=== PATIENT | female | born 1960 | race Caucasian/White ===

== ENCOUNTER 2016-07-17 22:27 | Emergency (ER) | payer OTHER ==
[~2016-07-17] VITALS: Ht 165.1 cm; Wt 79.0 kg
[~2016-07-17 22:27] MED LIST: ATOR10TA69 PO; ESTR1TAB17 PO; LOSA25TA2 PO; MEDR2.5T6 PO; MULT-1259 PO; NITR0.4T SL; NITR1PAT68 TD; SITA1TAB6 PO
[2016-07-17] MEDS ORDERED: SITA25 PO (22:33)
[2016-07-17 22:41] LABS: GLUCOSE,POINT OF CARE 332 MG/DL (70-110)
[2016-07-17 22:49] LABS: BASOPHILS % (AUTO) 0.2 % (0.0-2.0); EOSINOPHILS % (AUTO) 0.5 % (1.0-6.0); HEMATOCRIT 40.9 % (36-46); HEMOGLOBIN 13.4 g/dL (12.0-16.0); LYMPHOCYTES # (AUTO) 0.6 K/uL (1.0-4.8); MEAN CORPUSCULAR HEMOGLOBIN 28.8 pg (26.0-34.0); MEAN CORPUSCULAR HGB CONC 32.8 G/dL (31.0-37.0); MEAN CORPUSCULAR VOLUME 88 fL (80-100); MONOCYTES # (AUTO) 0.3 K/uL (0.1-1.0); NEUTROPHILS # (AUTO) 5.9 K/uL (1.8-7.7); PLATELET COUNT (AUTO) 291 K/uL (150-450); RED BLOOD CELL COUNT(AUTO) 4.66 MIL/uL (4.00-5.20); RED CELL DISTRIBUTION WIDTH 12.5 % (11.5-14.5); WHITE BLOOD COUNT (AUTO) 6.9 K/uL (4.5-11.0)
[2016-07-17 22:51] LABS: NEUTROPHILS % (AUTO) 85.3 % (40.0-70.0)
[2016-07-17 23:00] LABS: ANION GAP 7 mmol/L (8-16); CALCIUM, TOTAL 8.5 mg/dL (8.8-10.5); CARBON DIOXIDE 31 mmol/L (22-29); CHLORIDE 100 mmol/L (98-107); CREATININE 0.75 mg/dL (0.60-1.30); GLOMERULAR FILTR. RATE CALC > 60 mL/min (>60); SODIUM SERUM 138 mmol/L (136-145); UREA NITROGEN, BLOOD 17 mg/dL (7-18)
[2016-07-17 23:07] LABS: ALANINE AMINOTRANSFERASE 30 U/L (12-78); ALBUMIN 3.3 g/dL (3.4-5.0); ASPARTATE AMINOTRANSFERASE 20 U/L (15-37); BILIRUBIN,TOTAL 0.8 mg/dL (0.1-1.0); TOTAL PROTEIN, SERUM 7.1 g/dL (6.4-8.2)
[2016-07-18 00:53] LABS: APPEARANCE,URINE CLOUDY (CLEAR); GLUCOSE, URINE (UA) >=1000 mg/dL (NEGATIVE); KETONES,URINE TRACE mg/dL (NEGATIVE); LEUKOCYTE ESTERASE ,URINE NEGATIVE (NEGATIVE); OCCULT BLOOD,URINE NEGATIVE (NEGATIVE); PH,URINE 5.5 (5.0-8.0); PROTEIN,URINE POS 1+ (NEGATIVE)
[2016-07-18 01:09] LABS: ADD UA MICROSCOPIC YES
[2016-07-18] MEDS ORDERED: SODIUM CHLORIDE 0.9% 1,000 ML IV ONE (01:15)
[2016-07-18] MEDS ORDERED: DIPHENOXYLATE/ATROP 2.5-0.025 MG TABLET PO ONE (01:15)
[2016-07-18] MEDS ORDERED: ONDANSETRON HCL 4 MG/2 ML VIAL IVP ONE (01:15)
[2016-07-18] MEDS ORDERED: KETOROLAC TROMETHAMINE 30 MG/ML VIAL IVP ONE (01:30)
[2016-07-18 01:35] LABS: RBC,URINE 0-2 /HPF (0-2); SQUAMOUS EPITHELIAL CELL,UR Few /LPF (None Seen)
[2016-07-18] MEDS ORDERED: ACETAMINOPHEN 500 MG TABLET PO ONE (01:45)
[2016-07-18 02:25] VITALS: BP 112/71
== END 2016-07-18 02:27 | disposition home or self-care (01) ==
LOC: EMS 22:28
DX: K52.9 Noninfective gastroenteritis and colitis, unspecified (principal); E11.65 Type 2 diabetes mellitus with hyperglycemia; R51 Headache; E78.00 Pure hypercholesterolemia, unspecified
CPT/HCPCS: 36415; 80053; 81001; 82962; 83690; 85025; 87086; 96361; 96374; 96375; 99284; J1885; J2405; J7030

== ENCOUNTER 2016-10-25 14:13 | Emergency (ER) | payer OTHER ==
[~2016-10-25] VITALS: Ht 165.1 cm; Wt 81.8 kg
[~2016-10-25 14:13] MED LIST changes: -SITA1TAB6 PO; +SITA25 PO
[2016-10-25 14:27] LABS: GLUCOSE,POINT OF CARE 355 MG/DL (70-110)
[2016-10-25] MEDS ORDERED: HYDROCODONE/ACETAMINOPHEN 5-325 MG TABLET PO ONE (17:00)
[2016-10-25 17:24] LABS: BASOPHILS % (AUTO) 0.3 % (0.0-2.0); EOSINOPHILS % (AUTO) 1.4 % (1.0-6.0); HEMOGLOBIN 13.7 g/dL (12.0-16.0); LYMPHOCYTES # (AUTO) 2.5 K/uL (1.0-4.8); LYMPHOCYTES % (AUTO) 29.8 % (22.0-44.0); MEAN CORPUSCULAR HEMOGLOBIN 29.5 pg (26.0-34.0); MEAN CORPUSCULAR HGB CONC 34.3 G/dL (31.0-37.0); MEAN CORPUSCULAR VOLUME 86 fL (80-100); MONOCYTES # (AUTO) 0.5 K/uL (0.1-1.0); NEUTROPHILS # (AUTO) 5.3 K/uL (1.8-7.7); NEUTROPHILS % (AUTO) 62.5 % (40.0-70.0); PLATELET COUNT (AUTO) 215 K/uL (150-450); RED BLOOD CELL COUNT(AUTO) 4.64 MIL/uL (4.00-5.20); RED CELL DISTRIBUTION WIDTH 13.2 % (11.5-14.5); WHITE BLOOD COUNT (AUTO) 8.4 K/uL (4.5-11.0)
[2016-10-25 17:29] LABS: ANION GAP 7 mmol/L (8-16); CALCIUM, TOTAL 9.2 mg/dL (8.8-10.5); CARBON DIOXIDE 28 mmol/L (22-29); CHLORIDE 102 mmol/L (98-107); CREATININE 0.73 mg/dL (0.60-1.30); GLOMERULAR FILTR. RATE CALC > 60 mL/min (>60); POTASSIUM 4.3 mmol/L (3.5-5.1); SODIUM SERUM 137 mmol/L (136-145); UREA NITROGEN, BLOOD 12 mg/dL (7-18)
[2016-10-25] MEDS ORDERED: BACITRACIN 0.9 GM PACKET OINTMENT TP ONE (18:30)
[2016-10-25] MEDS ORDERED: PERTUSS(ACELL),DIPH,TET VAC/PF 0.5 ML VIAL IM ONE (18:30)
[2016-10-25 19:56] LABS: GLUCOSE,POINT OF CARE 270 MG/DL (70-110)
[2016-10-25 20:19] VITALS: BP 154/81
== END 2016-10-25 20:23 | disposition home or self-care (01) ==
LOC: EMS 14:15
DX: R55 Syncope and collapse (principal); S00.83XA Contusion of other part of head, initial encounter; S40.012A Contusion of left shoulder, initial encounter; S50.02XA Contusion of left elbow, initial encounter; S80.212A Abrasion, left knee, initial encounter; E11.65 Type 2 diabetes mellitus with hyperglycemia; I11.9 Hypertensive heart disease without heart failure; E78.00 Pure hypercholesterolemia, unspecified; W19.XXXA Unspecified fall, initial encounter; Y93.89 Activity, other specified; Y92.89 Other specified places as the place of occurrence of the external cause; Y99.8 Other external cause status
CPT/HCPCS: 29240; 82962; 90471; 90715; 93005; 99285

== ENCOUNTER 2017-11-18 00:31 | Inpatient (IN) | payer MEDICAID, OTHER ==
[~2017-11-18] VITALS: Ht 157.5 cm; Wt 86.8 kg
[~2017-11-18 00:31] MED LIST changes: -MULT-1259 PO
[2017-11-18] MEDS ORDERED: LOSA50TA37 PO (00:54)
[2017-11-18] MEDS ORDERED: INSU100V SQ (00:54)
[2017-11-18] MEDS ORDERED: ASPI81 PO (00:54)
[2017-11-18] MEDS ORDERED: INSLAN SQ (00:54)
[2017-11-18] MEDS ORDERED: DULO20CA30 PO (00:54)
[2017-11-18 01:04] LABS: GLUCOSE,POINT OF CARE 222 MG/DL (70-110)
[2017-11-18 01:07] LABS: BASOPHILS % (AUTO) 0.5 % (0.0-2.0); HEMATOCRIT 42.8 % (36-46); HEMOGLOBIN 14.8 g/dL (12.0-16.0); LYMPHOCYTES # (AUTO) 3.3 K/uL (1.0-4.8); LYMPHOCYTES % (AUTO) 37.6 % (22.0-44.0); MEAN CORPUSCULAR HEMOGLOBIN 29.6 pg (26.0-34.0); MEAN CORPUSCULAR HGB CONC 34.5 G/dL (31.0-37.0); MEAN CORPUSCULAR VOLUME 86 fL (80-100); MONOCYTES # (AUTO) 0.7 K/uL (0.1-1.0); MONOCYTES % (AUTO) 7.9 % (2.0-9.0); NEUTROPHILS # (AUTO) 4.6 K/uL (1.8-7.7); PLATELET COUNT (AUTO) 237 K/uL (150-450); RED CELL DISTRIBUTION WIDTH 12.9 % (11.5-14.5)
[2017-11-18 01:18] LABS: ANION GAP 12 mmol/L (8-16); CARBON DIOXIDE 28 mmol/L (22-29); CHLORIDE 97 mmol/L (98-107); CREATININE 0.89 mg/dL (0.60-1.30); GLOMERULAR FILTR. RATE CALC > 60 mL/min (>60); GLUCOSE,RANDOM 230 mg/dL (70-110); POTASSIUM 3.1 mmol/L (3.5-5.1); PROTHROMBIN TIME 10.4 SEC (9.4-11.6); SODIUM SERUM 137 mmol/L (136-145); UREA NITROGEN, BLOOD 16 mg/dL (7-18)
[2017-11-18 01:26] LABS: B-TYPE NATRIURETIC PEPTIDE < 5 pg/mL (0-100)
[2017-11-18 01:36] LABS: APPEARANCE,URINE CLEAR (CLEAR); BILIRUBIN,URINE NEGATIVE (NEGATIVE); GLUCOSE, URINE (UA) >=1000 mg/dL (NEGATIVE); KETONES,URINE NEGATIVE (NEGATIVE); LEUKOCYTE ESTERASE ,URINE NEGATIVE (NEGATIVE); NITRATE,URINE POSITIVE (NEGATIVE); OCCULT BLOOD,URINE NEGATIVE (NEGATIVE); PROTEIN,URINE TRACE (NEGATIVE); UROBILINOGEN,URINE 0.2 mg/dL (<=1.0)
[2017-11-18 01:42] LABS: ALANINE AMINOTRANSFERASE 33 U/L (12-78); ALBUMIN 3.8 g/dL (3.4-5.0); ALKALINE PHOSPHATASE 141 U/L (46-116); ASPARTATE AMINOTRANSFERASE 16 U/L (15-37); BILIRUBIN,TOTAL 0.5 mg/dL (0.1-1.0); CREATINE KINASE, TOTAL 189 U/L (26-192); TOTAL PROTEIN, SERUM 8.2 g/dL (6.4-8.2)
[2017-11-18 01:43] LABS: BACTERIA,URINE Moderate /HPF (None Seen); RBC,URINE None Seen /HPF (0-2); SQUAMOUS EPITHELIAL CELL,UR Rare /LPF (None Seen); YEAST,URINE Rare /HPF (None Seen)
[2017-11-18 01:44] LABS: HYALINE CASTS, URINE 0-2 /LPF (None Seen)
[2017-11-18] MEDS ORDERED: ASPIRIN 325 MG TABLET PO ONE (02:00)
[2017-11-18] MEDS ORDERED: NITROGLYCERIN 2% (1 GM=INCH) PACKET TP ONE (02:00)
[2017-11-18] MEDS ORDERED: NITROGLYCERIN 0.4 MG SUBLINGUAL TABLET #25 SL ONE (02:00)
[2017-11-18] MEDS ORDERED: ONDANSETRON HCL 4 MG/2 ML VIAL IVP PRN (02:30)
[2017-11-18] MEDS ORDERED: 0.9% SODIUM CHLORIDE 10 ML SYRINGE IVP PRN (02:30)
[2017-11-18] MEDS ORDERED: ACETAMINOPHEN 325 MG TABLET PO PRN (02:30)
[2017-11-18] MEDS ORDERED: POTASSIUM CHLORIDE 10% 40 MEQ/30 ML LIQUID UDCUP PO ONE (03:00)
[2017-11-18 04:41] VITALS: BP 158/88
[2017-11-18] MEDS ORDERED: ZOLPIDEM TARTRATE 5 MG TABLET PO PRN (07:00)
[2017-11-18] MEDS ORDERED: DEXTROSE 50%-WATER 25 GM/50 ML SYRINGE IVP PRN (07:00)
[2017-11-18] MEDS ORDERED: BISACODYL 10 MG RECTAL RECTAL SUPPOSITORY PR PRN (07:00)
[2017-11-18] MEDS ORDERED: MAGNESIUM HYDROXIDE SUSPENSION 30 ML UDCUP PO PRN (07:00)
[2017-11-18] MEDS: ACETAMINOPHEN 325 MG TABLET PO PRN (07:31)
[2017-11-18 08:34] VITALS: BP 116/55
[2017-11-18] MEDS: DOCUSATE SODIUM 100 MG CAPSULE PO SCH ×2 (08:56→20:31)
[2017-11-18] MEDS: PANTOPRAZOLE SODIUM 40 MG DR TABLET PO SCH (08:58)
[2017-11-18] MEDS: ATORVASTATIN CALCIUM 10 MG TABLET PO SCH (08:58)
[2017-11-18] MEDS: LOSARTAN POTASSIUM 50 MG TABLET PO SCH (08:59)
[2017-11-18] MEDS: HEPARIN SODIUM,PORCINE 5,000 UNITS/ML VIAL SQ SCH ×2 (09:00→16:37)
[2017-11-18] MEDS: ASPIRIN 81 MG CHEWABLE TABLET PO SCH (09:00)
[2017-11-18] MEDS: NITROGLYCERIN 2% (1 GM=INCH) PACKET TP SCH ×2 (09:04→16:38)
[2017-11-18] MEDS: INSULIN GLARGINE,HUM.REC.ANLOG 100 UNITS/ML SQ SCH ×2 (09:12→20:37)
[2017-11-18] MEDS: DULoxetine HCL 20 MG CAPSULE PO SCH (09:13)
[2017-11-18] MEDS: HYDROCODONE/ACETAMINOPHEN 5-325 MG TABLET PO PRN (10:08)
[2017-11-18 10:53] VITALS: BP 123/69
[2017-11-18] MEDS: INSULIN LISPRO 100 UNITS/ML SQ PRN ×3 (12:02→20:38)
[2017-11-18 12:35] LABS: GLUCOMETER DEV NAME(LOC) 5S 1M; GLUCOSE,POINT OF CARE 220 MG/DL (70-110)
[2017-11-18] MEDS: ONDANSETRON HCL 4 MG/2 ML VIAL IVP PRN (14:39)
[2017-11-18 15:04] VITALS: BP 115/65
[2017-11-18 18:34] LABS: GLUCOMETER DEV NAME(LOC) 5S 2Q; GLUCOSE,POINT OF CARE 184 MG/DL (70-110)
[2017-11-18 18:35] LABS: GLUCOMETER DEV NAME(LOC) 5S 2Q; GLUCOSE,POINT OF CARE 256 MG/DL (70-110)
[2017-11-18 19:59] VITALS: BP 115/63
[2017-11-18 23:34] VITALS: BP 111/64
[2017-11-19] VITALS (7 sets, daily range): BP systolic 105–141; BP diastolic 59–72
[2017-11-19] MEDS: HEPARIN SODIUM,PORCINE 5,000 UNITS/ML VIAL SQ SCH ×3 (00:06→15:38)
[2017-11-19] MEDS: NITROGLYCERIN 2% (1 GM=INCH) PACKET TP SCH ×3 (00:06→15:38)
[2017-11-19 01:29] LABS: GLUCOMETER DEV NAME(LOC) 5S 2Q; GLUCOSE,POINT OF CARE 305 MG/DL (70-110)
[2017-11-19 06:24] LABS: BASOPHILS % (AUTO) 0.3 % (0.0-2.0); EOSINOPHILS % (AUTO) 2.6 % (1.0-6.0); HEMATOCRIT 38.4 % (36-46); HEMOGLOBIN 13.1 g/dL (12.0-16.0); LYMPHOCYTES # (AUTO) 2.3 K/uL (1.0-4.8); LYMPHOCYTES % (AUTO) 34.4 % (22.0-44.0); MEAN CORPUSCULAR HEMOGLOBIN 29.1 pg (26.0-34.0); MEAN CORPUSCULAR HGB CONC 34.1 G/dL (31.0-37.0); MEAN CORPUSCULAR VOLUME 85 fL (80-100); MONOCYTES # (AUTO) 0.4 K/uL (0.1-1.0); MONOCYTES % (AUTO) 6.5 % (2.0-9.0); NEUTROPHILS # (AUTO) 3.8 K/uL (1.8-7.7); NEUTROPHILS % (AUTO) 56.2 % (40.0-70.0); PLATELET COUNT (AUTO) 215 K/uL (150-450); RED CELL DISTRIBUTION WIDTH 13.1 % (11.5-14.5)
[2017-11-19 06:45] LABS: ANION GAP 7 mmol/L (8-16); CALCIUM, TOTAL 8.8 mg/dL (8.8-10.5); CARBON DIOXIDE 28 mmol/L (22-29); CHLORIDE 99 mmol/L (98-107); CHOL/HDL RATIO 4.3 (3.9-5.7); CHOLESTEROL 210 mg/dL (131-200); CREATININE 0.84 mg/dL (0.60-1.30); GLOMERULAR FILTR. RATE CALC > 60 mL/min (>60); GLUCOSE,RANDOM 364 mg/dL (70-110); HDL CHOLESTEROL 49 mg/dL (40-60); LDL CHOL (CALC.) 120 mg/dL (0-130); POTASSIUM 4.3 mmol/L (3.5-5.1); SODIUM SERUM 134 mmol/L (136-145); TRIGLYCERIDES 206 mg/dL (15-150); UREA NITROGEN, BLOOD 12 mg/dL (7-18)
[2017-11-19] MEDS: PANTOPRAZOLE SODIUM 40 MG DR TABLET PO SCH (09:12)
[2017-11-19] MEDS ORDERED: REGADENOSON 0.4 MG/5 ML PF SYRINGE IVP ONE ×2 (09:12→17:48)
[2017-11-19] MEDS: DOCUSATE SODIUM 100 MG CAPSULE PO SCH ×2 (09:13→20:40)
[2017-11-19] MEDS: ATORVASTATIN CALCIUM 10 MG TABLET PO SCH (09:14)
[2017-11-19] MEDS: ASPIRIN 81 MG CHEWABLE TABLET PO SCH (09:14)
[2017-11-19] MEDS: INSULIN GLARGINE,HUM.REC.ANLOG 100 UNITS/ML SQ SCH ×2 (09:27→21:06)
[2017-11-19] MEDS: DULoxetine HCL 20 MG CAPSULE PO SCH (09:28)
[2017-11-19] MEDS ORDERED: SESTAMIBI TC99M/UD ISOTOPE 1 EA INJ INJ ONE ×2 (10:30→13:25)
[2017-11-19] MEDS: INSULIN LISPRO 100 UNITS/ML SQ PRN ×3 (12:37→21:07)
[2017-11-19] MEDS: LOSARTAN POTASSIUM 50 MG TABLET PO SCH (15:38)
[2017-11-19] MEDS ORDERED: INSULIN LISPRO 100 UNITS/ML SQ ONE (15:45)
[2017-11-19 20:15] LABS: GLUCOMETER DEV NAME(LOC) 5S 2Q; GLUCOSE,POINT OF CARE 352 MG/DL (70-110)
[2017-11-19 20:15] LABS: GLUCOMETER DEV NAME(LOC) 5S 2Q; GLUCOSE,POINT OF CARE 341 MG/DL (70-110)
[2017-11-19 20:15] LABS: GLUCOMETER DEV NAME(LOC) 5S 2Q; GLUCOSE,POINT OF CARE 320 MG/DL (70-110)
[2017-11-19] MEDS: ACETAMINOPHEN 325 MG TABLET PO PRN (20:45)
[2017-11-20] VITALS (16 sets, daily range): BP systolic 103–179; BP diastolic 54–97
[2017-11-20] MEDS: HEPARIN SODIUM,PORCINE 5,000 UNITS/ML VIAL SQ SCH ×3 (00:18→17:04)
[2017-11-20 00:24] LABS: GLUCOMETER DEV NAME(LOC) 5S 1M; GLUCOSE,POINT OF CARE 245 MG/DL (70-110)
[2017-11-20 00:24] LABS: GLUCOMETER DEV NAME(LOC) 5S 1M; GLUCOSE,POINT OF CARE 416 MG/DL (70-110)
[2017-11-20 00:24] LABS: GLUCOMETER DEV NAME(LOC) 5S 1M; GLUCOSE,POINT OF CARE 316 MG/DL (70-110)
[2017-11-20] MEDS: ACETAMINOPHEN 325 MG TABLET PO PRN ×2 (06:08→18:25)
[2017-11-20 06:17] LABS: BASOPHILS % (AUTO) 1.2 % (0.0-2.0); HEMATOCRIT 37.9 % (36-46); LYMPHOCYTES # (AUTO) 2.2 K/uL (1.0-4.8); LYMPHOCYTES % (AUTO) 38.1 % (22.0-44.0); MEAN CORPUSCULAR HEMOGLOBIN 29.2 pg (26.0-34.0); MEAN CORPUSCULAR HGB CONC 34.4 G/dL (31.0-37.0); MEAN CORPUSCULAR VOLUME 85 fL (80-100); MONOCYTES # (AUTO) 0.3 K/uL (0.1-1.0); MONOCYTES % (AUTO) 5.7 % (2.0-9.0); PLATELET COUNT (AUTO) 204 K/uL (150-450); RED BLOOD CELL COUNT(AUTO) 4.47 MIL/uL (4.00-5.20); RED CELL DISTRIBUTION WIDTH 13.2 % (11.5-14.5)
[2017-11-20 06:29] LABS: ANION GAP 4 mmol/L (8-16); CALCIUM, TOTAL 8.5 mg/dL (8.8-10.5); CARBON DIOXIDE 30 mmol/L (22-29); CHLORIDE 102 mmol/L (98-107); CREATININE 0.72 mg/dL (0.60-1.30); GLOMERULAR FILTR. RATE CALC > 60 mL/min (>60); GLUCOSE,RANDOM 265 mg/dL (70-110); POTASSIUM 4.2 mmol/L (3.5-5.1); SODIUM SERUM 136 mmol/L (136-145); UREA NITROGEN, BLOOD 11 mg/dL (7-18)
[2017-11-20] MEDS: NITROGLYCERIN 2% (1 GM=INCH) PACKET TP SCH ×2 (08:00)
[2017-11-20] MEDS: INSULIN GLARGINE,HUM.REC.ANLOG 100 UNITS/ML SQ SCH ×2 (09:00→20:23)
[2017-11-20] MEDS: ASPIRIN 81 MG CHEWABLE TABLET PO SCH (09:00)
[2017-11-20] MEDS: DOCUSATE SODIUM 100 MG CAPSULE PO SCH ×2 (09:00→20:20)
[2017-11-20] MEDS: PANTOPRAZOLE SODIUM 40 MG DR TABLET PO SCH (09:01)
[2017-11-20] MEDS: ATORVASTATIN CALCIUM 10 MG TABLET PO SCH (09:01)
[2017-11-20] MEDS: DULoxetine HCL 20 MG CAPSULE PO SCH (09:01)
[2017-11-20] MEDS: LOSARTAN POTASSIUM 50 MG TABLET PO SCH (09:01)
[2017-11-20 11:39] LABS: GLUCOMETER DEV NAME(LOC) 5S 1M; GLUCOSE,POINT OF CARE 270 MG/DL (70-110)
[2017-11-20] MEDS: INSULIN LISPRO 100 UNITS/ML SQ PRN ×2 (12:11→20:23)
[2017-11-20] MEDS: CefTRIAXone SODIUM 1 GM in DEXTROSE 5%-WATER 10 ML IV SCH (12:46)
[2017-11-20] MEDS ORDERED: SODIUM BICARBONATE 50 MEQ/50 ML VIAL ONE (13:39)
[2017-11-20] MEDS ORDERED: IOHEXOL 300 MG/ML 150 ML VIAL ONE (13:39)
[2017-11-20] MEDS ORDERED: HEPARIN SODIUM 1000 UNITS/NS 1,000 ML ONE (13:39)
[2017-11-20] MEDS ORDERED: LIDOCAINE HCL/PF 1% 30 ML VIAL ONE (13:39)
[2017-11-20] MEDS ORDERED: HEPARIN SODIUM 2,000 UNITS in HEPARIN SODIUM 1000 UNITS/NS 1,000 ML IARTER ONE (14:04)
[2017-11-20] MEDS ORDERED: LIDOCAINE 1% 30 ML/SOD BICARB 8.4% 4 ML SQ ONE (14:15)
[2017-11-20] MEDS ORDERED: IOHEXOL 300 MG/ML 150 ML VIAL IARTER ONE (14:15)
[2017-11-20] MEDS ORDERED: NITROGLYCERIN 50 MG/D5% WATER 250 ML ONE (14:16)
[2017-11-20] MEDS ORDERED: IOHEXOL 300 MG/ML 50 ML VIAL ONE (14:16)
[2017-11-20] MEDS ORDERED: IOHEXOL 300 MG/ML 100 ML VIAL ONE (14:16)
[2017-11-20] MEDS ORDERED: VERAPAMIL HCL 2.5 MG/ML 2 ML VIAL ONE (14:16)
[2017-11-20] MEDS ORDERED: TICAGRELOR 90 MG TABLET ONE (14:17)
[2017-11-20] MEDS ORDERED: TICAGRELOR 90 MG TABLET PO ONE (14:30)
[2017-11-20] MEDS ORDERED: NITROGLYCERIN/D5W 50 MG/250 ML IV BOTTLE ICOR ONE (14:45)
[2017-11-20] MEDS ORDERED: HEPARIN SODIUM,PORCINE 5,000 UNITS/ML VIAL IVP ONE (14:45)
[2017-11-20] MEDS ORDERED: VERAPAMIL HCL 2.5 MG/ML 2 ML VIAL ICOR ONE (14:45)
[2017-11-20] MEDS ORDERED: IOHEXOL 300 MG/ML 100 ML VIAL IARTER ONE (14:45)
[2017-11-20] MEDS ORDERED: NITROGLYCERIN 400 MCG/SUBLINGUAL SPRAY 4.9 GM BOTTLE SL PRN (15:30)
[2017-11-20] MEDS ORDERED: METOPROLOL SUCCINATE 25 MG ER TABLET PO ONE (16:00)
[2017-11-20] MEDS: ISOSORBIDE MONONITRATE 30 MG ER TABLET PO SCH (17:04)
[2017-11-20 19:59] LABS: GLUCOSE,POINT OF CARE 262 MG/DL (70-110)
[2017-11-20] MEDS: ATORVASTATIN CALCIUM 40 MG TABLET PO SCH (20:20)
[2017-11-20] MEDS: TICAGRELOR 90 MG TABLET PO SCH (20:20)
[2017-11-21] VITALS (11 sets, daily range): BP systolic 100–140; BP diastolic 52–76
[2017-11-21] MEDS: HYDROCODONE/ACETAMINOPHEN 5-325 MG TABLET PO PRN
[2017-11-21 00:03] LABS: GLUCOSE,POINT OF CARE 311 MG/DL (70-110)
[2017-11-21 03:11] LABS: GLUCOMETER DEV NAME(LOC) 5S 2Q; GLUCOSE,POINT OF CARE 299 MG/DL (70-110)
[2017-11-21] MEDS: MORPHINE SULFATE 2 MG/ML SYRINGE IVP PRN ×2 (03:33→08:31)
[2017-11-21 05:16] LABS: ANION GAP 5 mmol/L (8-16); CALCIUM, TOTAL 8.4 mg/dL (8.8-10.5); CARBON DIOXIDE 28 mmol/L (22-29); CHLORIDE 101 mmol/L (98-107); CREATININE 0.63 mg/dL (0.60-1.30); GLOMERULAR FILTR. RATE CALC > 60 mL/min (>60); GLUCOSE,RANDOM 287 mg/dL (70-110); SODIUM SERUM 134 mmol/L (136-145); UREA NITROGEN, BLOOD 12 mg/dL (7-18)
[2017-11-21] MEDS: INSULIN LISPRO 100 UNITS/ML SQ PRN ×4 (05:46→21:03)
[2017-11-21 06:01] LABS: BASOPHILS % (AUTO) 0.2 % (0.0-2.0); EOSINOPHILS % (AUTO) 1.6 % (1.0-6.0); HEMATOCRIT 36.6 % (36-46); HEMOGLOBIN 12.5 g/dL (12.0-16.0); LYMPHOCYTES # (AUTO) 1.3 K/uL (1.0-4.8); LYMPHOCYTES % (AUTO) 19.4 % (22.0-44.0); MEAN CORPUSCULAR HEMOGLOBIN 29.5 pg (26.0-34.0); MEAN CORPUSCULAR HGB CONC 34.1 G/dL (31.0-37.0); MEAN CORPUSCULAR VOLUME 86 fL (80-100); MONOCYTES # (AUTO) 0.4 K/uL (0.1-1.0); MONOCYTES % (AUTO) 6.2 % (2.0-9.0); NEUTROPHILS % (AUTO) 72.6 % (40.0-70.0); PLATELET COUNT (AUTO) 194 K/uL (150-450); RED BLOOD CELL COUNT(AUTO) 4.23 MIL/uL (4.00-5.20); RED CELL DISTRIBUTION WIDTH 12.9 % (11.5-14.5)
[2017-11-21 06:58] LABS: GLUCOSE,POINT OF CARE 247 MG/DL (70-110)
[2017-11-21] MEDS: HEPARIN SODIUM,PORCINE 5,000 UNITS/ML VIAL SQ SCH ×4 (08:32→23:15)
[2017-11-21] MEDS: LOSARTAN POTASSIUM 50 MG TABLET PO SCH (08:32)
[2017-11-21] MEDS: ISOSORBIDE MONONITRATE 30 MG ER TABLET PO SCH (08:33)
[2017-11-21] MEDS: ASPIRIN 81 MG CHEWABLE TABLET PO SCH (08:33)
[2017-11-21] MEDS: TICAGRELOR 90 MG TABLET PO SCH ×2 (08:33→21:01)
[2017-11-21] MEDS: DOCUSATE SODIUM 100 MG CAPSULE PO SCH ×2 (08:33→21:00)
[2017-11-21] MEDS: PANTOPRAZOLE SODIUM 40 MG DR TABLET PO SCH (08:34)
[2017-11-21] MEDS: DULoxetine HCL 20 MG CAPSULE PO SCH (08:34)
[2017-11-21] MEDS: INSULIN GLARGINE,HUM.REC.ANLOG 100 UNITS/ML SQ SCH ×2 (08:36→21:03)
[2017-11-21] MEDS: ONDANSETRON HCL 4 MG/2 ML VIAL IVP PRN (09:48)
[2017-11-21] MEDS: CefTRIAXone SODIUM 1 GM in DEXTROSE 5%-WATER 10 ML IV SCH (13:40)
[2017-11-21 13:44] LABS: GLUCOSE,POINT OF CARE 274 MG/DL (70-110)
[2017-11-21 17:49] LABS: GLUCOSE,POINT OF CARE 265 MG/DL (70-110)
[2017-11-21] MEDS: ATORVASTATIN CALCIUM 40 MG TABLET PO SCH (21:01)
[2017-11-22] VITALS: BP 127/52
[2017-11-22 04:00] VITALS: BP 157/58
[2017-11-22] MEDS: INSULIN LISPRO 100 UNITS/ML SQ PRN ×4 (06:08→21:31)
[2017-11-22 06:09] LABS: BASOPHILS % (AUTO) 0.3 % (0.0-2.0); EOSINOPHILS % (AUTO) 2.2 % (1.0-6.0); HEMATOCRIT 36.4 % (36-46); HEMOGLOBIN 12.4 g/dL (12.0-16.0); LYMPHOCYTES # (AUTO) 1.8 K/uL (1.0-4.8); LYMPHOCYTES % (AUTO) 29.5 % (22.0-44.0); MEAN CORPUSCULAR HEMOGLOBIN 29.4 pg (26.0-34.0); MEAN CORPUSCULAR VOLUME 87 fL (80-100); MONOCYTES # (AUTO) 0.4 K/uL (0.1-1.0); MONOCYTES % (AUTO) 7.4 % (2.0-9.0); NEUTROPHILS # (AUTO) 3.6 K/uL (1.8-7.7); NEUTROPHILS % (AUTO) 60.6 % (40.0-70.0); PLATELET COUNT (AUTO) 189 K/uL (150-450); RED CELL DISTRIBUTION WIDTH 12.9 % (11.5-14.5)
[2017-11-22 06:49] LABS: GLUCOSE,POINT OF CARE 276 MG/DL (70-110)
[2017-11-22 06:49] LABS: GLUCOSE,POINT OF CARE 228 MG/DL (70-110)
[2017-11-22 07:00] LABS: ALANINE AMINOTRANSFERASE 50 U/L (12-78); ALBUMIN 3.1 g/dL (3.4-5.0); ALKALINE PHOSPHATASE 73 U/L (46-116); ANION GAP 7 mmol/L (8-16); ASPARTATE AMINOTRANSFERASE 60 U/L (15-37); BILIRUBIN,TOTAL 0.6 mg/dL (0.1-1.0); CALCIUM, TOTAL 8.7 mg/dL (8.8-10.5); CARBON DIOXIDE 29 mmol/L (22-29); CHLORIDE 101 mmol/L (98-107); CREATININE 0.61 mg/dL (0.60-1.30); GLOMERULAR FILTR. RATE CALC > 60 mL/min (>60); GLUCOSE,RANDOM 237 mg/dL (70-110); POTASSIUM 3.9 mmol/L (3.5-5.1); SODIUM SERUM 137 mmol/L (136-145); TOTAL PROTEIN, SERUM 6.7 g/dL (6.4-8.2); UREA NITROGEN, BLOOD 12 mg/dL (7-18)
[2017-11-22 08:00] VITALS: BP 112/59
[2017-11-22] MEDS: DOCUSATE SODIUM 100 MG CAPSULE PO SCH ×3 (09:07→21:28)
[2017-11-22] MEDS: ASPIRIN 81 MG CHEWABLE TABLET PO SCH (09:07)
[2017-11-22] MEDS: DULoxetine HCL 20 MG CAPSULE PO SCH (09:07)
[2017-11-22] MEDS: PANTOPRAZOLE SODIUM 40 MG DR TABLET PO SCH (09:08)
[2017-11-22] MEDS: TICAGRELOR 90 MG TABLET PO SCH ×2 (09:08→21:28)
[2017-11-22] MEDS: HEPARIN SODIUM,PORCINE 5,000 UNITS/ML VIAL SQ SCH ×2 (09:09→16:57)
[2017-11-22] MEDS: ISOSORBIDE MONONITRATE 30 MG ER TABLET PO SCH (09:09)
[2017-11-22] MEDS: LOSARTAN POTASSIUM 50 MG TABLET PO SCH (09:12)
[2017-11-22] MEDS: INSULIN GLARGINE,HUM.REC.ANLOG 100 UNITS/ML SQ SCH ×2 (09:18→21:30)
[2017-11-22 12:00] VITALS: BP 143/47
[2017-11-22] MEDS: CefTRIAXone SODIUM 1 GM in DEXTROSE 5%-WATER 10 ML IV SCH (13:44)
[2017-11-22] MEDS ORDERED: INSULIN LISPRO 100 UNITS/ML SQ PRN (13:45)
[2017-11-22 14:54] LABS: GLUCOSE,POINT OF CARE 305 MG/DL (70-110)
[2017-11-22 16:00] VITALS: BP 129/59
[2017-11-22 16:54] LABS: GLUCOSE,POINT OF CARE 325 MG/DL (70-110)
[2017-11-22 20:00] VITALS: BP 131/62
[2017-11-22] MEDS: ATORVASTATIN CALCIUM 40 MG TABLET PO SCH (21:28)
[2017-11-23] VITALS (9 sets, daily range): BP systolic 106–153; BP diastolic 49–72
[2017-11-23] MEDS: HEPARIN SODIUM,PORCINE 5,000 UNITS/ML VIAL SQ SCH ×4 (00:14→23:39)
[2017-11-23] MEDS: INSULIN LISPRO 100 UNITS/ML SQ PRN ×3 (06:04→17:54)
[2017-11-23] MEDS: PANTOPRAZOLE SODIUM 40 MG DR TABLET PO SCH (08:08)
[2017-11-23] MEDS: TICAGRELOR 90 MG TABLET PO SCH ×2 (08:09→20:24)
[2017-11-23] MEDS: ISOSORBIDE MONONITRATE 30 MG ER TABLET PO SCH (08:09)
[2017-11-23] MEDS: DOCUSATE SODIUM 100 MG CAPSULE PO SCH ×2 (08:09→20:24)
[2017-11-23] MEDS: ASPIRIN 81 MG CHEWABLE TABLET PO SCH (08:09)
[2017-11-23] MEDS: LOSARTAN POTASSIUM 50 MG TABLET PO SCH (08:09)
[2017-11-23] MEDS: INSULIN GLARGINE,HUM.REC.ANLOG 100 UNITS/ML SQ SCH ×2 (08:10→20:25)
[2017-11-23 08:25] LABS: GLUCOSE,POINT OF CARE 189 MG/DL (70-110)
[2017-11-23 08:25] LABS: GLUCOSE,POINT OF CARE 352 MG/DL (70-110)
[2017-11-23] MEDS: DULoxetine HCL 20 MG CAPSULE PO SCH (09:09)
[2017-11-23 11:39] LABS: GLUCOSE,POINT OF CARE 254 MG/DL (70-110)
[2017-11-23] MEDS: ACETAMINOPHEN 325 MG TABLET PO PRN (13:14)
[2017-11-23] MEDS: CefTRIAXone SODIUM 1 GM in DEXTROSE 5%-WATER 10 ML IV SCH (13:14)
[2017-11-23] MEDS: ATORVASTATIN CALCIUM 40 MG TABLET PO SCH (20:24)
[2017-11-24 04:37] VITALS: BP 108/61
[2017-11-24] MEDS: INSULIN LISPRO 100 UNITS/ML SQ PRN ×4 (06:27→21:15)
[2017-11-24 06:59] LABS: BASOPHILS % (AUTO) 0.2 % (0.0-2.0); EOSINOPHILS % (AUTO) 2.8 % (1.0-6.0); HEMATOCRIT 35.5 % (36-46); HEMOGLOBIN 12.2 g/dL (12.0-16.0); LYMPHOCYTES # (AUTO) 1.9 K/uL (1.0-4.8); LYMPHOCYTES % (AUTO) 33.7 % (22.0-44.0); MEAN CORPUSCULAR HEMOGLOBIN 29.1 pg (26.0-34.0); MEAN CORPUSCULAR HGB CONC 34.4 G/dL (31.0-37.0); MEAN CORPUSCULAR VOLUME 85 fL (80-100); MONOCYTES # (AUTO) 0.4 K/uL (0.1-1.0); NEUTROPHILS # (AUTO) 3.1 K/uL (1.8-7.7); NEUTROPHILS % (AUTO) 56.3 % (40.0-70.0); PLATELET COUNT (AUTO) 192 K/uL (150-450)
[2017-11-24 07:10] LABS: ANION GAP 5 mmol/L (8-16); CALCIUM, TOTAL 8.7 mg/dL (8.8-10.5); CARBON DIOXIDE 31 mmol/L (22-29); CHLORIDE 101 mmol/L (98-107); GLOMERULAR FILTR. RATE CALC > 60 mL/min (>60); GLUCOSE,RANDOM 322 mg/dL (70-110); POTASSIUM 3.9 mmol/L (3.5-5.1); SODIUM SERUM 137 mmol/L (136-145); UREA NITROGEN, BLOOD 11 mg/dL (7-18)
[2017-11-24 07:53] VITALS: BP 111/66
[2017-11-24] MEDS: PANTOPRAZOLE SODIUM 40 MG DR TABLET PO SCH (08:19)
[2017-11-24] MEDS: HEPARIN SODIUM,PORCINE 5,000 UNITS/ML VIAL SQ SCH ×2 (08:19→17:06)
[2017-11-24] MEDS: DOCUSATE SODIUM 100 MG CAPSULE PO SCH ×2 (08:19→21:13)
[2017-11-24] MEDS: ASPIRIN 81 MG CHEWABLE TABLET PO SCH (08:19)
[2017-11-24] MEDS: LOSARTAN POTASSIUM 50 MG TABLET PO SCH (08:19)
[2017-11-24] MEDS: ISOSORBIDE MONONITRATE 30 MG ER TABLET PO SCH (08:19)
[2017-11-24] MEDS: DULoxetine HCL 20 MG CAPSULE PO SCH (08:20)
[2017-11-24] MEDS: TICAGRELOR 90 MG TABLET PO SCH ×2 (08:20→21:13)
[2017-11-24] MEDS: INSULIN GLARGINE,HUM.REC.ANLOG 100 UNITS/ML SQ SCH ×2 (08:26→21:14)
[2017-11-24 10:33] LABS: GLUCOSE,POINT OF CARE 240 MG/DL (70-110)
[2017-11-24 10:33] LABS: GLUCOSE,POINT OF CARE 345 MG/DL (70-110)
[2017-11-24 11:21] VITALS: BP 107/61
[2017-11-24] MEDS: CefTRIAXone SODIUM 1 GM in DEXTROSE 5%-WATER 10 ML IV SCH (11:49)
[2017-11-24 15:44] VITALS: BP 111/63
[2017-11-24 15:53] LABS: GLUCOMETER DEV NAME(LOC) 5S 1M; GLUCOSE,POINT OF CARE 230 MG/DL (70-110)
[2017-11-24 15:53] LABS: GLUCOMETER DEV NAME(LOC) 5S 1M; GLUCOSE,POINT OF CARE 280 MG/DL (70-110)
[2017-11-24 16:33] LABS: GLUCOMETER DEV NAME(LOC) 5N 1P; GLUCOSE,POINT OF CARE 259 MG/DL (70-110)
[2017-11-24] MEDS ORDERED: HYPROMELLOSE 0.5% 15 ML OPHTHALMIC SOLUTION OU PRN (17:00)
[2017-11-24 20:39] LABS: GLUCOMETER DEV NAME(LOC) 5S 1M; GLUCOSE,POINT OF CARE 322 MG/DL (70-110)
[2017-11-24] MEDS: ATORVASTATIN CALCIUM 40 MG TABLET PO SCH (21:13)
[2017-11-25 00:19] VITALS: BP 109/49
[2017-11-25] MEDS: INSULIN LISPRO 100 UNITS/ML SQ PRN ×4 (06:15→22:15)
[2017-11-25 06:47] LABS: BASOPHILS % (AUTO) 0.5 % (0.0-2.0); EOSINOPHILS % (AUTO) 2.4 % (1.0-6.0); HEMATOCRIT 35.7 % (36-46); HEMOGLOBIN 12.3 g/dL (12.0-16.0); LYMPHOCYTES # (AUTO) 1.7 K/uL (1.0-4.8); LYMPHOCYTES % (AUTO) 27.9 % (22.0-44.0); MEAN CORPUSCULAR HEMOGLOBIN 29.6 pg (26.0-34.0); MEAN CORPUSCULAR HGB CONC 34.5 G/dL (31.0-37.0); MEAN CORPUSCULAR VOLUME 86 fL (80-100); MONOCYTES # (AUTO) 0.5 K/uL (0.1-1.0); MONOCYTES % (AUTO) 8.1 % (2.0-9.0); NEUTROPHILS # (AUTO) 3.7 K/uL (1.8-7.7); NEUTROPHILS % (AUTO) 61.1 % (40.0-70.0); PLATELET COUNT (AUTO) 194 K/uL (150-450); RED BLOOD CELL COUNT(AUTO) 4.16 MIL/uL (4.00-5.20); RED CELL DISTRIBUTION WIDTH 12.9 % (11.5-14.5)
[2017-11-25 07:06] LABS: ANION GAP 6 mmol/L (8-16); CALCIUM, TOTAL 8.8 mg/dL (8.8-10.5); CARBON DIOXIDE 30 mmol/L (22-29); CHLORIDE 102 mmol/L (98-107); CREATININE 0.62 mg/dL (0.60-1.30); GLOMERULAR FILTR. RATE CALC > 60 mL/min (>60); GLUCOSE,RANDOM 244 mg/dL (70-110); POTASSIUM 4.2 mmol/L (3.5-5.1); SODIUM SERUM 138 mmol/L (136-145); UREA NITROGEN, BLOOD 13 mg/dL (7-18)
[2017-11-25 07:30] VITALS: BP 119/60
[2017-11-25 08:04] LABS: GLUCOMETER DEV NAME(LOC) 5S 1M; GLUCOSE,POINT OF CARE 288 MG/DL (70-110)
[2017-11-25] MEDS: HEPARIN SODIUM,PORCINE 5,000 UNITS/ML VIAL SQ SCH ×3 (08:23→16:00)
[2017-11-25] MEDS: ASPIRIN 81 MG CHEWABLE TABLET PO SCH (08:23)
[2017-11-25] MEDS: DOCUSATE SODIUM 100 MG CAPSULE PO SCH ×2 (08:23→22:14)
[2017-11-25] MEDS: ISOSORBIDE MONONITRATE 30 MG ER TABLET PO SCH (08:23)
[2017-11-25] MEDS: PANTOPRAZOLE SODIUM 40 MG DR TABLET PO SCH (08:23)
[2017-11-25] MEDS: TICAGRELOR 90 MG TABLET PO SCH ×2 (08:23→22:14)
[2017-11-25] MEDS: DULoxetine HCL 20 MG CAPSULE PO SCH (08:23)
[2017-11-25] MEDS: LOSARTAN POTASSIUM 50 MG TABLET PO SCH (08:23)
[2017-11-25] MEDS: INSULIN GLARGINE,HUM.REC.ANLOG 100 UNITS/ML SQ SCH ×2 (08:36→22:17)
[2017-11-25 11:39] VITALS: BP 116/65
[2017-11-25] MEDS: CefTRIAXone SODIUM 1 GM in DEXTROSE 5%-WATER 10 ML IV SCH (14:25)
[2017-11-25 15:31] VITALS: BP 111/61
[2017-11-25 19:56] VITALS: BP 139/69
[2017-11-25] MEDS: ATORVASTATIN CALCIUM 40 MG TABLET PO SCH (22:14)
[2017-11-25 23:36] VITALS: BP_SYST 111; BP_SYST 118; BP_DIAS 57; BP_DIAS 73
[2017-11-26 04:52] VITALS: BP 114/60
[2017-11-26 05:41] LABS: BASOPHILS % (AUTO) 0.2 % (0.0-2.0); EOSINOPHILS % (AUTO) 2.9 % (1.0-6.0); HEMATOCRIT 36.7 % (36-46); HEMOGLOBIN 12.6 g/dL (12.0-16.0); LYMPHOCYTES # (AUTO) 1.8 K/uL (1.0-4.8); LYMPHOCYTES % (AUTO) 30.2 % (22.0-44.0); MEAN CORPUSCULAR HEMOGLOBIN 29.3 pg (26.0-34.0); MEAN CORPUSCULAR HGB CONC 34.2 G/dL (31.0-37.0); MEAN CORPUSCULAR VOLUME 86 fL (80-100); MONOCYTES # (AUTO) 0.5 K/uL (0.1-1.0); MONOCYTES % (AUTO) 7.7 % (2.0-9.0); NEUTROPHILS # (AUTO) 3.5 K/uL (1.8-7.7); PLATELET COUNT (AUTO) 199 K/uL (150-450); RED BLOOD CELL COUNT(AUTO) 4.29 MIL/uL (4.00-5.20); RED CELL DISTRIBUTION WIDTH 12.9 % (11.5-14.5)
[2017-11-26 05:54] LABS: ANION GAP 5 mmol/L (8-16); CALCIUM, TOTAL 8.9 mg/dL (8.8-10.5); CARBON DIOXIDE 31 mmol/L (22-29); CHLORIDE 102 mmol/L (98-107); CREATININE 0.74 mg/dL (0.60-1.30); GLOMERULAR FILTR. RATE CALC > 60 mL/min (>60); GLUCOSE,RANDOM 201 mg/dL (70-110); SODIUM SERUM 138 mmol/L (136-145); UREA NITROGEN, BLOOD 11 mg/dL (7-18)
[2017-11-26] MEDS: INSULIN LISPRO 100 UNITS/ML SQ PRN ×2 (06:28→12:13)
[2017-11-26 08:26] VITALS: BP 124/70
[2017-11-26] MEDS: LOSARTAN POTASSIUM 50 MG TABLET PO SCH (08:48)
[2017-11-26] MEDS: HEPARIN SODIUM,PORCINE 5,000 UNITS/ML VIAL SQ SCH ×2 (08:50)
[2017-11-26] MEDS: DOCUSATE SODIUM 100 MG CAPSULE PO SCH (08:50)
[2017-11-26] MEDS: ISOSORBIDE MONONITRATE 30 MG ER TABLET PO SCH (08:50)
[2017-11-26] MEDS: PANTOPRAZOLE SODIUM 40 MG DR TABLET PO SCH (08:50)
[2017-11-26] MEDS: TICAGRELOR 90 MG TABLET PO SCH (08:50)
[2017-11-26] MEDS: ASPIRIN 81 MG CHEWABLE TABLET PO SCH (08:50)
[2017-11-26] MEDS: DULoxetine HCL 20 MG CAPSULE PO SCH (08:50)
[2017-11-26] MEDS: INSULIN GLARGINE,HUM.REC.ANLOG 100 UNITS/ML SQ SCH (08:59)
[2017-11-26 12:03] VITALS: BP 126/77
[2017-11-26 19:04] LABS: GLUCOMETER DEV NAME(LOC) 5N 2S; GLUCOSE,POINT OF CARE 218 MG/DL (70-110)
[2017-11-26 19:04] LABS: GLUCOMETER DEV NAME(LOC) 5N 2S; GLUCOSE,POINT OF CARE 346 MG/DL (70-110)
[2017-11-26 19:04] LABS: GLUCOMETER DEV NAME(LOC) 5N 2S; GLUCOSE,POINT OF CARE 276 MG/DL (70-110)
[2017-11-26 19:04] LABS: GLUCOMETER DEV NAME(LOC) 5N 2S; GLUCOSE,POINT OF CARE 226 MG/DL (70-110)
[2017-11-26 19:05] LABS: GLUCOMETER DEV NAME(LOC) 5N 2S; GLUCOSE,POINT OF CARE 320 MG/DL (70-110)
[2017-11-28 17:29] LABS: GLUCOMETER DEV NAME(LOC) 5S 1M; GLUCOSE,POINT OF CARE 363 MG/DL (70-110)
[2017-11-28 17:29] LABS: GLUCOMETER DEV NAME(LOC) 5S 1M; GLUCOSE,POINT OF CARE 273 MG/DL (70-110)
== END 2017-11-26 14:40 | disposition home or self-care (01) | DRG 175 ==
LOC: EMS 00:31 → 5S 02:30 → ICU 11-20 15:00 → 5S 11-23 21:09 → 5N 11-24 20:23
PROVIDERS: ADMIT Internal Medicine; ATTEND Internal Medicine
PROC: 027034Z Dilation of Coronary Artery, One Artery with Drug-eluting Intraluminal Device, Percutaneous Approach (ICD-10-PCS; principal; 2017-11-18)
PROC: 4A023N7 Measurement of Cardiac Sampling and Pressure, Left Heart, Percutaneous Approach (ICD-10-PCS; 2017-11-18)
PROC: B2111ZZ Fluoroscopy of Multiple Coronary Arteries using Low Osmolar Contrast (ICD-10-PCS; 2017-11-18)
PROC: B2151ZZ Fluoroscopy of Left Heart using Low Osmolar Contrast (ICD-10-PCS; 2017-11-18)
DX: I25.10 Atherosclerotic heart disease of native coronary artery without angina pectoris (principal); E11.65 Type 2 diabetes mellitus with hyperglycemia; E78.00 Pure hypercholesterolemia, unspecified; I10 Essential (primary) hypertension; N39.0 Urinary tract infection, site not specified; E78.5 Hyperlipidemia, unspecified; H53.2 Diplopia; Z95.5 Presence of coronary angioplasty implant and graft
CPT/HCPCS: 70450; 74176; 78452; 83735; 84132; 87081; 87086; 92920; 92928; 93005; 93017; 93306; 97110; 97116; 97162; 99285; A9500; J0696; J1644; J1815; J2270; J2405; J2785; J3490; J7060; Q9967